=== PATIENT | female | born 2000 | race African-American/Black ===

== ENCOUNTER 2021-02-15 04:08 | Emergency (ER) | payer MEDICAID ==
[~2021-02-15] VITALS: Ht 170.2 cm; Wt 76.0 kg
[2021-02-15 05:00] VITALS: BP 106/69
[2021-02-15] MEDS ORDERED: TOPUD PO (07:14)
[2021-02-15] MEDS ORDERED: ACETAMINOPHEN 325MG TABLET PO ONE (07:15)
== END 2021-02-15 08:36 | disposition home or self-care (01) ==
LOC: ER 04:08
DX: M25.512 Pain in left shoulder (principal); V03.90XA Pedestrian on foot injured in collision with car, pick-up truck or van, unspecified whether traffic or nontraffic accident, initial encounter; Y93.01 Activity, walking, marching and hiking; Y92.9 Unspecified place or not applicable
CPT/HCPCS: 73030; 99283

== ENCOUNTER 2024-01-31 14:04 | Emergency (ER) | payer MEDICAID, OTHER ==
[~2024-01-31] VITALS: Ht 172.7 cm; Wt 90.0 kg
[~2024-01-31 14:04] MED LIST: TOPUD PO
[2024-01-31 14:19] VITALS: BP 133/80; PULSE 74; RESP 20; TEMP 98.1; O2SAT 98
[2024-01-31] MEDS: LIDOCAINE HCL 1% 20ML VIAL INFIL ONE (15:39)
[2024-01-31] MEDS: BACITRACIN ZINC OINT UDPKT TOP ONE (15:39)
== END 2024-01-31 16:04 | disposition home or self-care (01) ==
LOC: ER 14:04
DX: S51.811A Laceration without foreign body of right forearm, initial encounter (principal); Z91.013 Allergy to seafood; Z88.0 Allergy status to penicillin; W18.39XA Other fall on same level, initial encounter; Y93.89 Activity, other specified; Y92.89 Other specified places as the place of occurrence of the external cause; Y99.8 Other external cause status
CPT/HCPCS: 99283; 73090; 12001; J3490